=== PATIENT | female | born 1980 | race Caucasian/White ===

== ENCOUNTER 2019-01-06 14:29 | Emergency (ER) | payer SELFPAY ==
[~2019-01-06] VITALS: Ht 172.7 cm; Wt 107.0 kg
[2019-01-06 14:40] VITALS: BP 113/83
== END 2019-01-06 17:37 | disposition left against medical advice (07) ==
LOC: ED 17:31
DX: R10.13 Epigastric pain (principal); R10.33 Periumbilical pain; R11.2 Nausea with vomiting, unspecified; F17.200 Nicotine dependence, unspecified, uncomplicated
CPT/HCPCS: 36415; 74177; 80053; 80307; 81001; 83690; 84703; 85025; 87086; 96374; 99284; J2405; Q9967